=== PATIENT | female | born 1990 | race African-American/Black ===

== ENCOUNTER 2021-11-17 11:53 | Emergency (ER) | payer OTHER ==
[~2021-11-17] VITALS: Ht 160 cm; Wt 75.0 kg
[~2021-11-17 11:53] MED LIST: NOCURR
[2021-11-17] MEDS ORDERED: IBUPROFEN 800 MG TABLET PO ONE (13:00)
[2021-11-17 13:35] VITALS: BP 136/77
== END 2021-11-17 14:06 | disposition home or self-care (01) ==
LOC: EMS 11:53
DX: S93.401A Sprain of unspecified ligament of right ankle, initial encounter (principal); Z88.8 Allergy status to other drugs, medicaments and biological substances; Z88.5 Allergy status to narcotic agent; X50.1XXA Overexertion from prolonged static or awkward postures, initial encounter; Y93.89 Activity, other specified; Y92.89 Other specified places as the place of occurrence of the external cause; Y99.8 Other external cause status
CPT/HCPCS: 99283